=== PATIENT | female | born 1945 | race Caucasian/White ===

== ENCOUNTER 2019-06-20 13:00 | Outpatient (RCR) | payer MEDICARE, SELFPAY ==
[2019-06-06 14:48] VITALS: BP 144/73; PULSE 61; RESP 16; TEMP 35.7; BMI 19.1
--- NOTE | 2019-06-06 16:19 | PCM.WC.HP ---
(1) Wound of right leg Status: Chronic Current Visit: Yes Qualifiers: Encounter type: initial encounter Qualified Code(s): S81.801A - Unspecified open wound, right lower leg, initial encounter Code(s): S81.801A - Unspecified open wound, right lower leg, initial encounter (2) Wound infection, posttraumatic Status: Chronic Current Visit: Yes Code(s): T14.8XXA - Other injury of unspecified body region, initial encounter; L08.9 - Local infection of the skin and subcutaneous tissue, unspecified (3) Hyperlipidemia Status: Chronic Current Visit: No Code(s): E78.5 - Hyperlipidemia, unspecified (4) Hypothyroidism Status: Chronic Current Visit: No Code(s): E03.9 - Hypothyroidism, unspecified (5) History of melanoma Status: Chronic Current Visit: No Code(s): Z85.820 - Personal history of malignant melanoma of skin (6) History of melanoma excision Status: Chronic Current Visit: No Code(s): Z98.890 - Other specified postprocedural states; Z85.820 - Personal history of malignant melanoma of skin History of Present Illness Date of Service: 06/06/19 Chief Complaint: Traumatic wound of the right anterior tibial surface, with suspected infection History of Wound: This is a generally healthy and active 73-year-old female who presents with a traumatic wound on the right anterior tibial surface. The injury occurred on May 10, 2019. It occurred due to trauma when the patient dropped a box against her leg. An open wound resulted, for which she sought medical attention on May 18, 2019 at an urgent care facility. 2 oral antibiotics were prescribed, both Keflex and Bactrim double strength, which she took for a total of 10 days. She has remained under the care of her primary care physician in [place], [place], and has been using antibiotic ointment topically for the last week. Despite all measures, the wound has failed to heal. She presents at this time for evaluation and management. The patient claims to be active. She has no history of thrombophlebitis. She does not generally experience swelling in her lower extremities. Past Medical History Past Medical History: Chronic Problems Wound of right leg (Chronic) Wound infection, posttraumatic (Chronic) Hyperlipidemia (Chronic) Hypothyroidism (Chronic) History of melanoma (Chronic) History of melanoma excision (Chronic) Past Medical History: Patient's history is negative for myocardial infarction, congestive heart failure, cerebrovascular accident, diabetes mellitus, hypertension, pulmonary disease, renal disease, and gastroesophageal reflux disease. She does have a history of hypothyroidism and diet-controlled hyperlipidemia. Surgical History: - - The patient underwent right total hip replacement in 2017. She underwent right rotator cuff surgery in 2017. Hysterectomy was performed in 1986. Patient underwent excision of a melanoma from her right thorax in the past. She is a G4, P3 Ab1 (spontaneous). Home Medications: Ambulatory Orders Medication Instructions Recorded Aspirin [Aspir 81] 81 mg PO DAILY 06/06/19 Bimatoprost 0.01% [Lumigan 0.01%] 1 drp EACH EYE DAILY 06/06/19 Calcium Carbonate/Vitamin D3 1 ea PO BID 06/06/19 [Calcium 600 + Vit D Tablet] Fish Oil/Dha/Epa [Fish Oil 1,200 1 ea PO DAILY 06/06/19 mg Fish Oil] Levothyroxine [Synthroid] 100 mcg PO DAILY 06/06/19 Multivitamin/Iron/Folic Acid 1 ea PO DAILY 06/06/19 [Centrum Adults Tablet] - Family History Paternal - - The patient's father at the age of 65 with a history of myocardial infarction. The patient's mother is living, age 95, with severe peripheral arterial occlusive disease which has required lower extremity amputation. Social History: The patient is . 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 She denies the use of tobacco products. She consumes alcohol moderately. Lives: Spouse/ Significant Other Smoking Status: Former smoker Tobacco Use: Non-smoker Alcohol: Occasional Drugs: None Review of Systems Constitutional: Denies: Chills, Fever, Weight Change Eyes: Denies: Pain, Vision Change HEENT: Denies: Difficulty Hearing, Difficulty Swallowing, Sinus Congestion Cardiovascular: Denies: Chest Pain, Palpitations Respiratory: Denies: Cough, Shortness of Breath Gastrointestinal: Denies: Diarrhea, Nausea, Vomiting Genitourinary: Denies: Dysuria, Hematuria Endocrine: Denies: Heat/ Cold Intolerance, Polydipsia, Polyuria Hematologic/ Lymphatic: Denies: Easy Bruising, Easy Bleeding - Physical Exam Vital Signs Temp Pulse Resp BP 96.2 F L 61 16 144/73 H 06/06/19 14:48 06/06/19 14:48 06/06/19 14:48 06/06/19 14:48 General: Alert, Oriented x3, Cooperative, No apparent distress, Well developed, Well nourished, - - The patient is of relatively normal body habitus. HEENT: Atraumatic, PERRLA, EOMI, Normocephalic Oral: Moist Mucosa, No Gingival or Mucosal Lesions/ Ulcerations Neck: Supple, No JVD, Negative Carotid Bruits, Negative Hepatojugular Reflux, No Nodes, No Nuchal Rigidity, Trachea Midline Lungs: Clear to auscultation, Normal air movement, No rhonchi, No wheeze, No rales Cardiovascular: Regular rate, Regular Rhythm, Normal S1, Normal S2, No murmurs Abdomen: Soft, Non Tender, Non-Distended Extremities: No clubbing, No cyanosis, No edema, No Calf Tenderness, - - An open wound is noted on the right anterior tibial surface. The wound is covered by a dry eschar. There is moderate surrounding erythema, suspected to be cellulitis. Dimensions are documented elsewhere. Wound Measurements and Assessment WC - Nurse 1 - General Ulcer Measurement Start: 06/06/19 14:48 Freq: Status: Active Protocol: Activity Type Activity Date Activity User E-Sign Co-Sign Detail Recorded Client Recorded Date Recorded By Document 06/06/19 14:48 MW [id number] 06/06/19 14:55 MW 06/06/19 14:48 Wound Center Nurse 1 [Ulcer Assessment] #1 Right Presley -Combined with other wound No -Current Size (cm) - Length 1.3 -Current Size (cm) - Width 0.7 -Current Size (cm) - Depth 0.1 -Total Square Cm 0.91 -Date of Last Picture (Recall this 06/06/19 field) -Photo Taken Yes -Epithelialization None Present -Tunneling No -Undermining/Tunneling No -Circular Undermining No -Exudate Amt None Present -Wound Margin Flat & Intact -Granulation Amt None Present (0 %) -Granulation Quality N/A -Slough/Fibrin Yes -Necrosis Amt Large (67-100%) -Necrotic Tissue Type Eschar -Structure Exposed N/A -Texture (Sharon-wound Skin Appearance) No Abnormality, Assessed -Moisture (Sharon-wound Skin Appearance Assessed,Dry/ ) Scaly -Color (Sharon-wound Skin Appearance) Assessed, Erythema -Temperature (Sharon-wound Skin No Abnormality Appearance) (Pt Warm) -Tenderness on Palpation (Sharon-wound Yes Skin Appearance) -Ulcer Cleansing Rinsed/ Irrigated with Saline -Anesthetic Used 5% Lidocaine Gel [Edema Assessment] -Lower Limb Edema Present No -Right Calf (cm) 34.0 -Right Ankle (cm) 19.0 -Left Calf (cm) 35.0 -Left Ankle (cm) 18.7 WC - Nurse 2 - General Ulcer CM Notes Start: 06/06/19 14:48 Freq: Status: Active Protocol: Activity Type Activity Date Activity User E-Sign Co-Sign Detail Recorded Client Recorded Date Recorded By Document 06/06/19 15:44 DV [id number] 06/06/19 15:59 DV 06/06/19 15:44 Wound Center Nurse 2 [Procedure/Treatment] #1 Right Presley -Time 15:48 -Correct Patient Yes -Correct Side, Site, Position Yes -Correct Procedure Yes -Procedure Performed Yes -Type of Procedure Debridement -Clinical Debridement Subcutaneous -Post Debridement Size (cm) - Length 1.2 -Post Debridement Size (cm) - Width 0.8 -Post Debridement Size (cm) - Depth 0.3 -Total Square Cm 0.96 -Wound/Ulcer Outcome Not Healed -Ulcer Cleansing Rinsed/ Irrigated with Saline -Foul Odor after Cleansing No -Bioengineered Tissue No -Bleeding Controlled with Pressure -Offloading No -Treatment Response Procedure Tolerated Well [See Physician Procedure note for Specifics] Pain Scale: 0-10 Numeric [Pain] -Is Patient Pain Free? Yes Musculoskeletal: No Muscle Wasting Neurological: Cranial nerves II-XII grossly intact, Neuro grossly intact Psych/Mental Status: Normal Affect, Appropriate, Alert and oriented to time, place, person, mood and affect Debridement Note Post-Debridement Measurements/Treatment - Nurse 2 - General Ulcer CM Notes Start: 06/06/19 14:48 Freq: Status: Active Protocol: Activity Type Activity Date Activity User E-Sign Co-Sign Detail Recorded Client Recorded Date Recorded By Document 06/06/19 15:44 DV [id number] 06/06/19 15:59 DV 06/06/19 15:44 Wound Center Nurse 2 #1 Right Presley -Time 15:48 -Correct Patient Yes -Correct Side, Site, Position Yes -Correct Procedure Yes -Procedure Performed Yes -Type of Procedure Debridement -Clinical Debridement Subcutaneous -Post Debridement Size (cm) - Length 1.2 -Post Debridement Size (cm) - Width 0.8 -Post Debridement Size (cm) - Depth 0.3 -Total Square Cm 0.96 -Wound/Ulcer Outcome Not Healed -Ulcer Cleansing Rinsed/ Irrigated with Saline -Foul Odor after Cleansing No -Bioengineered Tissue No -Bleeding Controlled with Pressure -Offloading No -Treatment Response Procedure Tolerated Well Pain Scale: 0-10 Numeric Is Patient Pain Free? Yes Laterality: Right - Anterior tibial surface Type of Debridement: Excisional debridement Anesthesia Used: 5% Lidocaine Gel Depth: Down to and including healthy tissue, in the subcutaneous layer Percentage of wound debrided: 100 Instrument Used: 5mm curette Tissue Removed: Bioburden, nonviable tissue, and eschar Severity: Fat Layer Exposed Amount of bleeding with debridement: Mild Bleeding Controlled with: Compression and gauze Patient tolerated procedure well Following removal of the eschar, swab cultures were obtained for both aerobic and anaerobic bacterial growth. Assessment/Plan Active Problems Wound of right leg (Chronic) Wound infection, posttraumatic (Chronic) Assessment: This is a 73-year-old female who appears to be generally healthy, active, and functional. She presents with a traumatic wound on the right anterior tibial surface, the result of trauma on May 10, 2019. The wound has failed to heal. At her initial presentation today, there is surrounding erythema, suggesting the presence of cellulitis. Her wound has been debrided. Swab cultures have been obtained for both aerobic and anaerobic growth. Plan: Initial management is to be by means of collagenase Santyl which will be applied topically by the patient on a daily basis. Patient has been instructed into the appropriate means of topical application. A prescription has been provided. The patient's pharmacy is [facility] in [place], [place]. Swab cultures have been obtained for aerobic and anaerobic bacterial growth. Culture results will be awaited. Routine laboratory studies are to be obtained, including a CBC, comprehensive metabolic profile, serum prealbumin, etc. A noninvasive lower extremity arterial study will also be obtained to assess arterial circulation. The patient has been counseled to take a well-balanced and nutritious diet. The patient is not a smoker. Influenza vaccine was not administered today. The patient weighs 115 pounds. She stands 5 feet 5 inches tall. Her BMI is 19.1. She is not overweight or obese.
[2019-06-13 14:22] VITALS: BP 144/90; PULSE 68; RESP 18; BMI 19.1
--- NOTE | 2019-06-13 15:29 | HP.PCM_ITS ---
(1) Wound of right leg Status: Chronic Current Visit: Yes Qualifiers: Encounter type: subsequent encounter Qualified Code(s): S81.801D - Unspecified open wound, right lower leg, subsequent encounter Code(s): S81.801A - Unspecified open wound, right lower leg, initial encounter (2) Wound infection, posttraumatic Status: Chronic Current Visit: Yes Code(s): T14.8XXA - Other injury of unspecified body region, initial encounter; L08.9 - Local infection of the skin and subcutaneous tissue, unspecified (3) Hyperlipidemia Status: Chronic Current Visit: No Code(s): E78.5 - Hyperlipidemia, unspecified (4) Hypothyroidism Status: Chronic Current Visit: No Code(s): E03.9 - Hypothyroidism, unspecified (5) History of melanoma Status: Chronic Current Visit: No Code(s): Z85.820 - Personal history of malignant melanoma of skin (6) History of melanoma excision Status: Chronic Current Visit: No Code(s): Z98.890 - Other specified postprocedural states; Z85.820 - Personal history of malignant melanoma of skin History of Present Illness Date of Service: 06/13/19 Chief Complaint: Traumatic wound of the right anterior tibial surface History of Wound: This is a generally healthy and active 73-year-old female who presented with a traumatic wound on the right anterior tibial surface. The injury occurred on May 10, 2019. It occurred due to trauma when the patient dropped a box against her leg. An open wound resulted, for which she sought medical attention on May 18, 2019 at an urgent care facility. Two oral antibiotics were prescribed, both Keflex and Bactrim double strength, which she took for a total of 10 days. She has remained under the care of her primary care physician in [place], [place], and has been using antibiotic ointment topically for the last week. Despite all measures, the wound has failed to heal. She presented to our facility for evaluation and management. The patient claims to be active. She has no history of thrombophlebitis. She does not generally experience swelling in her lower extremities. Past Medical History Past Medical History: Chronic Problems Wound of right leg (Chronic) Wound infection, posttraumatic (Chronic) Hyperlipidemia (Chronic) Hypothyroidism (Chronic) History of melanoma (Chronic) History of melanoma excision (Chronic) Surgical History: - - The patient underwent right total hip replacement in 2017. She underwent right rotator cuff surgery in 2017. Hysterectomy was performed in 1986. Patient underwent excision of a melanoma from her right thorax in the past. She is a G4, P3 Ab1 (spontaneous). Home Medications: Ambulatory Orders Medication Instructions Recorded Aspirin [Aspir 81] 81 mg PO DAILY 06/06/19 Bimatoprost 0.01% [Lumigan 0.01%] 1 drp EACH EYE DAILY 06/06/19 Calcium Carbonate/Vitamin D3 1 ea PO BID 06/06/19 [Calcium 600 + Vit D Tablet] Fish Oil/Dha/Epa [Fish Oil 1,200 1 ea PO DAILY 06/06/19 mg Fish Oil] Levothyroxine [Synthroid] 100 mcg PO DAILY 06/06/19 Multivitamin/Iron/Folic Acid 1 ea PO DAILY 06/06/19 [Centrum Adults Tablet] - Family History Paternal - - The patient's father at the age of 65 with a history of myocardial infarction. The patient's mother is living, age 95, with severe peripheral arterial occlusive disease which has required lower extremity amputation. Lives: Spouse/ Significant Other Smoking Status: Former smoker Tobacco Use: Non-smoker Alcohol: Occasional Drugs: None Review of Systems Constitutional: Denies: Chills, Fever, Weight Change Eyes: Denies: Pain, Vision Change HEENT: Denies: Difficulty Hearing, Difficulty Swallowing, Sinus Congestion Cardiovascular: Denies: Chest Pain, Palpitations Respiratory: Denies: Cough, Shortness of Breath Gastrointestinal: Denies: Diarrhea, Nausea, Vomiting Genitourinary: Denies: Dysuria, Hematuria Endocrine: Denies: Heat/ Cold Intolerance, Polydipsia, Polyuria Hematologic/ Lymphatic: Denies: Easy Bruising, Easy Bleeding - Physical Exam Vital Signs Temp Pulse Resp BP 96.2 F L 68 18 144/90 H 06/06/19 14:48 06/13/19 14:22 06/13/19 14:22 06/13/19 14:22 General: Alert, Oriented x3, Cooperative, No apparent distress, Well developed, Well nourished HEENT: Atraumatic, PERRLA, EOMI, Normocephalic Oral: Moist Mucosa Neck: No JVD Lungs: Normal air movement Abdomen: Non-Distended Extremities: No clubbing, No cyanosis, No edema, No Calf Tenderness, - - The wound of the right anterior tibial surface demonstrates a moderate amount of bioburden and nonviable tissue. There is no obvious sign of infection or cellulitis. Dimensions are documented elsewhere. Skin: No rashes Wound Measurements and Assessment - Nurse 1 - General Ulcer Measurement Start: 06/06/19 14:48 Freq: Status: Active Protocol: Activity Type Activity Date Activity User E-Sign Co-Sign Detail Recorded Client Recorded Date Recorded By Document 06/13/19 14:22 [id number] 06/13/19 14:28 06/13/19 14:22 Wound Center Nurse 1 [Ulcer Assessment] #1 Right Presley -Combined with other wound No -Current Size (cm) - Length 1.0 -Current Size (cm) - Width 1.0 -Current Size (cm) - Depth 0.1 -Total Square Cm 1.00 -Granulation Quality Hyper- granulation -Texture (Sharon-wound Skin Appearance) Assessed, Localized Edema ,Scarring -Moisture (Sharon-wound Skin Appearance Assessed,Dry/ ) Scaly -Color (Sharon-wound Skin Appearance) Assessed, Hemosiderin Staining -Temperature (Sharon-wound Skin No Abnormality Appearance) (Pt Warm) -Tenderness on Palpation (Sharon-wound No Skin Appearance) -Ulcer Cleansing Rinsed/ Irrigated with Saline -Foul Odor after Cleansing No -Anesthetic Used 4% Lidocaine Solution - Nurse 2 - General Ulcer CM Notes Start: 06/06/19 14:48 Freq: Status: Active Protocol: Activity Type Activity Date Activity User E-Sign Co-Sign Detail Recorded Client Recorded Date Recorded By Document 06/13/19 15:19 DV [id number] 06/13/19 15:25 DV 06/13/19 15:19 Wound Center Nurse 2 [Procedure/Treatment] -Time 15:19 -Correct Patient Yes -Correct Side, Site, Position Yes -Correct Procedure Yes -Procedure Performed Yes -Type of Procedure Debridement -Clinical Debridement Subcutaneous -Post Debridement Size (cm) - Length 1.5 -Post Debridement Size (cm) - Width 1.0 -Post Debridement Size (cm) - Depth 1.0 -Total Square Cm 1.50 -Wound/Ulcer Outcome Not Healed -Ulcer Cleansing Rinsed/ Irrigated with Saline -Foul Odor after Cleansing No -Bioengineered Tissue No -Bleeding Controlled with Pressure -Offloading No -Treatment Response Procedure Tolerated Well [See Physician Procedure note for Specifics] Pain Scale: 0-10 Numeric [Pain] -Is Patient Pain Free? Yes Musculoskeletal: No Muscle Wasting Neurological: Cranial nerves II-XII grossly intact, Neuro grossly intact Psych/Mental Status: Normal Affect, Appropriate, Alert and oriented to time, place, person, mood and affect Debridement Note Post-Debridement Measurements/Treatment WC - Nurse 2 - General Ulcer CM Notes Start: 06/06/19 14:48 Freq: Status: Active Protocol: Activity Type Activity Date Activity User E-Sign Co-Sign Detail Recorded Client Recorded Date Recorded By Document 06/06/19 15:44 DV [id number] 06/06/19 15:59 DV Document 06/13/19 15:19 DV [id number] 06/13/19 15:25 DV 06/06/19 06/13/19 15:44 15:19 Wound Center Nurse 2 #1 Right Presley -Time 15:48 15:19 -Correct Patient Yes Yes -Correct Side, Site, Position Yes Yes -Correct Procedure Yes Yes -Procedure Performed Yes Yes -Type of Procedure Debridement Debridement -Clinical Debridement Subcutaneous Subcutaneous -Post Debridement Size (cm) - Length 1.2 1.5 -Post Debridement Size (cm) - Width 0.8 1.0 -Post Debridement Size (cm) - Depth 0.3 1.0 -Total Square Cm 0.96 1.50 -Wound/Ulcer Outcome Not Healed Not Healed -Ulcer Cleansing Rinsed/ Rinsed/ Irrigated with Irrigated with Saline Saline -Foul Odor after Cleansing No No -Bioengineered Tissue No No -Bleeding Controlled with Pressure Pressure -Offloading No No -Treatment Response Procedure Procedure Tolerated Well Tolerated Well Pain Scale: 0-10 Numeric Is Patient Pain Free? Yes Yes Laterality: Right - Anterior tibial surface Type of Debridement: Excisional debridement Anesthesia Used: 5% Lidocaine Gel Depth: Down to and including healthy tissue, in the subcutaneous layer Percentage of wound debrided: 100 Instrument Used: 5mm curette Tissue Removed: Bioburden and nonviable tissue Severity: Fat Layer Exposed Amount of bleeding with debridement: Mild Bleeding Controlled with: Compression and gauze Patient tolerated procedure well Assessment/Plan Active Problems Wound of right leg (Chronic) Wound infection, posttraumatic (Chronic) Assessment: This is a 73-year-old female who appears to be generally healthy, active, and functional. She presented with a traumatic wound on the right anterior tibial surface, the result of trauma on May 10, 2019. The wound has failed to heal. At her initial presentation, there was mild erythema, suggesting possible cellulitis. Swab cultures were obtained for both aerobic and anaerobic growth, which were negative. The patient is also undergone diagnostic laboratory studies, the results of which are as follows: White blood count 5.5, hemoglobin 12.8, hematocrit 38.8, platelets 258,000, glucose 132, sodium 140, potassium 3.6, chloride 105, BUN 13, creatinine 0.83, calcium 8.9, albumin 4.1, alkaline phosphatase 67, total protein 6.3, AST 20, ALT 19, total bilirubin 0.5, sedimentation rate 11. A noninvasive lower extremity arterial study is scheduled for June 28, 2019, the soonest appointment which was available. Plan: Collagenase Santyl is to be implemented, which will be applied topically by the patient on a daily basis. Patient has been instructed into the appropriate means of topical application. A prescription has been provided. The patient's pharmacy is [facility] in [place], [place]. Swab cultures have been obtained for aerobic and anaerobic bacterial growth. Culture results were negative. Routine laboratory studies have been obtained, and the results indicate her total protein to be low, for which the patient has been advised to increase her protein intake. A noninvasive lower extremity arterial study is currently scheduled for June 28, 2019. This will assess arterial circulation. The patient has been counseled to take a well-balanced and nutritious diet. Patient is to follow-up on an outpatient basis in 1 week for reassessment. The patient is not a smoker. Influenza vaccine was not administered today. The patient weighs 115 pounds. She stands 5 feet 5 inches tall. Her BMI is 19.1. She is not overweight or obese.
[2019-06-20 13:07] VITALS: BP 132/79; PULSE 67; RESP 18; BMI 19.1
--- NOTE | 2019-06-20 13:29 | HP.PCM_ITS ---
(1) Wound of right leg Status: Chronic Current Visit: Yes Qualifiers: Encounter type: subsequent encounter Qualified Code(s): S81.801D - Unspecified open wound, right lower leg, subsequent encounter Code(s): S81.801A - Unspecified open wound, right lower leg, initial encounter (2) Wound infection, posttraumatic Status: Chronic Current Visit: Yes Code(s): T14.8XXA - Other injury of unspecified body region, initial encounter; L08.9 - Local infection of the skin and subcutaneous tissue, unspecified (3) Hyperlipidemia Status: Chronic Current Visit: No Code(s): E78.5 - Hyperlipidemia, unspecified (4) Hypothyroidism Status: Chronic Current Visit: No Code(s): E03.9 - Hypothyroidism, unspecified (5) History of melanoma Status: Chronic Current Visit: No Code(s): Z85.820 - Personal history of malignant melanoma of skin (6) History of melanoma excision Status: Chronic Current Visit: No Code(s): Z98.890 - Other specified postprocedural states; Z85.820 - Personal history of malignant melanoma of skin History of Present Illness Date of Service: 06/20/19 Chief Complaint: Traumatic wound of the right anterior tibial surface History of Wound: This is a generally healthy and active 73-year-old female who presented with a traumatic wound on the right anterior tibial surface. The injury occurred on May 10, 2019. It occurred due to trauma when the patient dropped a box against her leg. An open wound resulted, for which she sought medical attention on May 18, 2019 at an urgent care facility. Two oral antibiotics were prescribed, both Keflex and Bactrim double strength, which she took for a total of 10 days. She has remained under the care of her primary care physician in [place], [place], and has been using antibiotic ointment topically for the last week. Despite all measures, the wound has failed to heal. She presented to our facility for evaluation and management. The patient claims to be active. She has no history of thrombophlebitis. She does not generally experience swelling in her lower extremities. Past Medical History Past Medical History: Chronic Problems Wound of right leg (Chronic) Wound infection, posttraumatic (Chronic) Hyperlipidemia (Chronic) Hypothyroidism (Chronic) History of melanoma (Chronic) History of melanoma excision (Chronic) Surgical History: - - The patient underwent right total hip replacement in 2017. She underwent right rotator cuff surgery in 2017. Hysterectomy was performed in 1986. Patient underwent excision of a melanoma from her right thorax in the past. She is a G4, P3 Ab1 (spontaneous). Home Medications: Ambulatory Orders Medication Instructions Recorded Aspirin [Aspir 81] 81 mg PO DAILY 06/06/19 Bimatoprost 0.01% [Lumigan 0.01%] 1 drp EACH EYE DAILY 06/06/19 Calcium Carbonate/Vitamin D3 1 ea PO BID 06/06/19 [Calcium 600 + Vit D Tablet] Fish Oil/Dha/Epa [Fish Oil 1,200 1 ea PO DAILY 06/06/19 mg Fish Oil] Levothyroxine [Synthroid] 100 mcg PO DAILY 06/06/19 Multivitamin/Iron/Folic Acid 1 ea PO DAILY 06/06/19 [Centrum Adults Tablet] - Family History Paternal - - The patient's father at the age of 65 with a history of myocardial infarction. The patient's mother is living, age 95, with severe peripheral arterial occlusive disease which has required lower extremity amputation. Lives: Spouse/ Significant Other Smoking Status: Former smoker Tobacco Use: Non-smoker Alcohol: Occasional Drugs: None Review of Systems Constitutional: Denies: Chills, Fever, Weight Change Eyes: Denies: Pain, Vision Change HEENT: Denies: Difficulty Hearing, Difficulty Swallowing, Sinus Congestion Cardiovascular: Denies: Chest Pain, Palpitations Respiratory: Denies: Cough, Shortness of Breath Gastrointestinal: Denies: Diarrhea, Nausea, Vomiting Genitourinary: Denies: Dysuria, Hematuria Endocrine: Denies: Heat/ Cold Intolerance, Polydipsia, Polyuria Hematologic/ Lymphatic: Denies: Easy Bruising, Easy Bleeding - Physical Exam Vital Signs Temp Pulse Resp BP 96.2 F L 67 18 132/79 H 06/06/19 14:48 06/20/19 13:07 06/20/19 13:07 06/20/19 13:07 General: Alert, Oriented x3, Cooperative, No apparent distress, Well developed, Well nourished HEENT: Atraumatic, PERRLA, EOMI, Normocephalic Oral: Moist Mucosa Neck: No JVD Lungs: Normal air movement Abdomen: Non-Distended Extremities: No clubbing, No cyanosis, No edema, No Calf Tenderness, - - Initial inspection of the patient's traumatic wound on the right anterior tibial surface reveals the periphery to be pink and healthy in appearance. Centrally, there is evidence of nonviable and necrotic tissue. During the course of gentle excisional debridement, it became evident that there was a central opening in the wound, leading to a deeper cavity, with significant undermining. Wound dimensions are documented elsewhere. There is no sign of infection or cellulitis. Skin: No rashes Wound Measurements and Assessment WC - Nurse 1 - General Ulcer Measurement Start: 06/06/19 14:48 Freq: Status: Active Protocol: Activity Type Activity Date Activity User E-Sign Co-Sign Detail Recorded Client Recorded Date Recorded By Document 06/20/19 13:07 BS [id number] 06/20/19 13:08 BS 06/20/19 13:07 Wound Center Nurse 1 [Ulcer Assessment] #1 Right Presley -Combined with other wound No -Current Size (cm) - Length 1.3 -Current Size (cm) - Width 1.8 -Current Size (cm) - Depth 0.2 -Total Square Cm 2.34 -Necrotic Tissue Type Adherent Slough -Moisture (Sharon-wound Skin Appearance No Abnormality, ) Assessed -Color (Sharon-wound Skin Appearance) Assessed, Hemosiderin Staining -Temperature (Sharon-wound Skin No Abnormality Appearance) (Pt Warm) -Tenderness on Palpation (Sharon-wound No Skin Appearance) -Ulcer Cleansing Rinsed/ Irrigated with Saline -Foul Odor after Cleansing No -Anesthetic Used 5% Lidocaine Gel WC - Nurse 2 - General Ulcer CM Notes Start: 06/06/19 14:48 Freq: Status: Active Protocol: Activity Type Activity Date Activity User E-Sign Co-Sign Detail Recorded Client Recorded Date Recorded By Document 06/20/19 13:19 MW [id number] 06/20/19 13:23 MW 06/20/19 13:19 Wound Center Nurse 2 [Procedure/Treatment] -Time 13:19 -Correct Patient Yes -Correct Side, Site, Position Yes -Correct Procedure Yes -Procedure Performed Yes -Type of Procedure Debridement -Clinical Debridement Subcutaneous -Post Debridement Size (cm) - Length 1.2 -Post Debridement Size (cm) - Width 1.0 -Post Debridement Size (cm) - Depth 0.3 -Total Square Cm 1.20 -Wound/Ulcer Outcome Not Healed -Ulcer Cleansing Rinsed/ Irrigated with Saline -Foul Odor after Cleansing No -Bioengineered Tissue No -Bleeding Controlled with Pressure -Other circular undermining - @ 9, 0.5cm -Offloading No -Treatment Response Procedure Tolerated Well [See Physician Procedure note for Specifics] Pain Scale: 0-10 Numeric [Pain] -Is Patient Pain Free? Yes Musculoskeletal: No Muscle Wasting Neurological: Cranial nerves II-XII grossly intact, Neuro grossly intact Psych/Mental Status: Normal Affect, Appropriate, Alert and oriented to time, place, person, mood and affect Debridement Note Post-Debridement Measurements/Treatment WC - Nurse 2 - General Ulcer CM Notes Start: 06/06/19 14:48 Freq: Status: Active Protocol: Activity Type Activity Date Activity User E-Sign Co-Sign Detail Recorded Client Recorded Date Recorded By Document 06/06/19 15:44 DV [id number] 06/06/19 15:59 DV Document 06/13/19 15:19 DV [id number] 06/13/19 15:25 DV Document 06/20/19 13:19 MW [id number] 06/20/19 13:23 MW 06/06/19 06/13/19 06/20/19 15:44 15:19 13:19 Wound Center Nurse 2 #1 Right Presley -Time 15:48 15:19 13:19 -Correct Patient Yes Yes Yes -Correct Side, Site, Position Yes Yes Yes -Correct Procedure Yes Yes Yes -Procedure Performed Yes Yes Yes -Type of Procedure Debridement Debridement Debridement -Clinical Debridement Subcutaneous Subcutaneous Subcutaneous -Post Debridement Size (cm) - Length 1.2 1.5 1.2 -Post Debridement Size (cm) - Width 0.8 1.0 1.0 -Post Debridement Size (cm) - Depth 0.3 1.0 0.3 -Total Square Cm 0.96 1.50 1.20 -Wound/Ulcer Outcome Not Healed Not Healed Not Healed -Ulcer Cleansing Rinsed/ Rinsed/ Rinsed/ Irrigated with Irrigated with Irrigated with Saline Saline Saline -Foul Odor after Cleansing No No No -Bioengineered Tissue No No No -Bleeding Controlled with Pressure Pressure Pressure -Other circular undermining - @ 9, 0.5cm -Offloading No No No -Treatment Response Procedure Procedure Procedure Tolerated Well Tolerated Well Tolerated Well Pain Scale: 0-10 Numeric Is Patient Pain Free? Yes Yes Yes Laterality: Right - Anterior tibial surface Type of Debridement: Excisional debridement Anesthesia Used: 5% Lidocaine Gel Depth: Down to and including healthy tissue, in the subcutaneous layer Percentage of wound debrided: 100 Instrument Used: 3mm curette Tissue Removed: Bioburden and nonviable tissue Severity: Fat Layer Exposed Amount of bleeding with debridement: Mild Bleeding Controlled with: Compression and gauze Patient tolerated procedure well Assessment/Plan Active Problems Wound of right leg (Chronic) Wound infection, posttraumatic (Chronic) Assessment: This is a 73-year-old female who appears to be generally healthy, active, and functional. She presented with a traumatic wound on the right anterior tibial surface, the result of trauma on May 10, 2019. The wound has failed to heal. At her initial presentation, there was mild erythema, suggesting possible cellulitis. Swab cultures were obtained for both aerobic and anaerobic growth, which were negative. The patient has also undergone diagnostic laboratory studies, the results of which are as follows: White blood count 5.5, hemoglobin 12.8, hematocrit 38.8, platelets 258,000, glucose 132, sodium 140, potassium 3.6, chloride 105, BUN 13, creatinine 0.83, calcium 8.9, albumin 4.1, alkaline phosphatase 67, total protein 6.3, AST 20, ALT 19, total bilirubin 0.5, sedimentation rate 11. A noninvasive lower extremity arterial study is scheduled for June 28, 2019, the soonest appointment which was available. Plan: Because of the undermining and central necrosis of the patient's traumatic wound, both of which have been noted at today's visit for the first time, we are to transition to the use of 1/4 inch Nu Gauze, which will be used to pack the wound cavity. This will be implemented on a daily basis. The patient has been instructed in the appropriate means of packing her wound. She is to follow-up in 1 week for reassessment. Swab cultures have been obtained for aerobic and anaerobic bacterial growth. Culture results were negative. Routine laboratory studies have been obtained, and the results indicate her total protein to be low, for which the patient has been advised to increase her protein intake. A noninvasive lower extremity arterial study is currently scheduled for June 28, 2019. This will assess arterial circulation. The patient has been counseled to take a well-balanced and nutritious diet. Patient is to follow-up on an outpatient basis in 1 week for reassessment. The patient is not a smoker. Influenza vaccine was not administered today. The patient weighs 115 pounds. She stands 5 feet 5 inches tall. Her BMI is 19.1. She is not overweight or obese.
== END 2019-06-21 23:59 ==
LOC: WC 13:00
PROVIDERS: Family Provider Nurse Practitioner Family; PCP Nurse Practitioner Family; Visit Provider Surgery
DX: S81.831A Puncture wound without foreign body, right lower leg, initial encounter (principal); W22.8XXA Striking against or struck by other objects, initial encounter; Z85.820 Personal history of malignant melanoma of skin; E03.9 Hypothyroidism, unspecified; E78.5 Hyperlipidemia, unspecified; Z79.899 Other long term (current) drug therapy; Z79.82 Long term (current) use of aspirin; Z87.891 Personal history of nicotine dependence
CPT/HCPCS: 11042; 87070; 87075; 87205; 99203; G0463

== ENCOUNTER 2019-07-19 12:00 | Outpatient (RCR) | payer MEDICARE, SELFPAY ==
[2019-06-22 01:06] VITALS: BP 132/79; PULSE 67; RESP 18; TEMP 35.7
--- NOTE | 2019-06-28 10:00 | VDLE_ITS ---
Reason For Study: pain and swelling, alexander ulcer RIGHT LEFT CFV is compressible, spontaneous, phasic, CFV is compressible, spontaneous, phasic, competent and demonstrates normal competent, and demonstrates normal augmentation. augmentation. FV is compressible, spontaneous, phasic, FV is compressible, spontaneous, phasic, competent and demonstrates normal competent and demonstrates normal augmentation. augmentation. POP V is compressible, spontaneous, phasic, POP V is compressible, spontaneous, phasic, competent and demonstrates normal competent and demonstrates normal augmentation. augmentation. T/P Trunk is compressible. T/P Trunk is compressible. PTV is compressible. PTV is compressible. RT PerV is compressible. LT PerV is compressible. SFJ is competent and measures .32 x .34 cm. SFJ is competent and measures .4 x .42 cm. GSV proximal thigh measures .23 x .24 cm. GSV proximal thigh measures .31 x .36 cm. GSV at knee measures .14 x .15 cm. GSV at knee measures .18 x .22 cm. GSV is competent throughout. GSV above knee is competent. SSV proximal calf is INCOMPETENT for greater GSV below knee is INCOMPETENT for greater than 0.5 seconds and measures .26 x .28 cm. than 0.5 seconds. Procedure SSV proximal calf is competent and Exam performed in department. measures .11 x .14 cm. The exam was diagnostic. Interpretation Summary Deep veins of the lower extremities are bilaterally patent and compressible segmentally. There is no evidence of deep vein thrombosis on either side. Valvular competence appears intact within the proximal deep venous systems bilaterally. The great saphenous veins appear bilaterally patent and compressible segmentally. Sapheno-femoral junctions are bilaterally competent . The right great saphenous vein appears segmentally competent. The left great saphenous vein appears competent above the knee. The left great saphenous vein appears incompetent below the knee. The right small saphenous vein is patent and incompetent. The left small saphenous vein is patent and competent. Ordering Physician: Edilberto Flores Performed By: Erick Wagner RVT
--- NOTE | 2019-06-28 10:00 | ART_ITS ---
Reason For Study: PVD Procedure A bilateral lower extremity continuous wave Doppler with analog waveform analysis,segmental pressures,and ankle brachial indexes without exercise. Left Segmental Pressures Left brachial= 156mmHg. Left posterior tibial artery = 170mmHg. Left dorsalis pedis artery = 159mmHg. Left digit = 121 mmHg. The left dorsalis pedis waveforms are triphasic. The left posterior tibial artery waveforms are triphasic. Right Segmental Pressures Right brachial= 155mmHg. Right posterior tibial artery = 175mmHg. Right dorsalis pedis artery = 172mmHg. Right digit = 123 mmHg. The right dorsalis pedis waveforms are triphasic. The right posterior tibial artery waveforms are triphasic. Indices The right ankle brachial index by the dorsalis pedis is 1.1. The right ankle brachial index by the posterior tibial artery is 1.12. The right digital-brachial index is .79. The left ankle brachial index by the dorsalis pedis is 1.02. The left ankle brachial index by the posterior tibial artery is 1.09. The left digital-brachial index is .78. Interpretation Summary Triphasic Doppler waveforms are noted at ankle level bilaterally. Pulse-volume recordings appear satisfactory at low-thigh, calf, and ankle levels bilaterally, and slightly diminished in amplitude at digital level bilaterally. Resting ankle-brachial indices are normal bilaterally. Digital- brachial indices are normal bilaterally. There is no evidence of significant arterial occlusive disease in the lower extremities bilaterally. Ordering Physician: Edilberto Flores Performed By: [facility]OL[facility]
[2019-06-28 11:58] VITALS: BP 127/59; PULSE 72; RESP 16; TEMP 36.2; BMI 19.1
--- NOTE | 2019-06-28 12:32 | PCM.WC.HP ---
(1) Wound of right leg Status: Chronic Current Visit: Yes Qualifiers: Encounter type: subsequent encounter Code(s): S81.801A - Unspecified open wound, right lower leg, initial encounter (2) Wound infection, posttraumatic Status: Chronic Current Visit: Yes Code(s): T14.8XXA - Other injury of unspecified body region, initial encounter; L08.9 - Local infection of the skin and subcutaneous tissue, unspecified (3) Hyperlipidemia Status: Chronic Current Visit: No Code(s): E78.5 - Hyperlipidemia, unspecified (4) Hypothyroidism Status: Chronic Current Visit: No Code(s): E03.9 - Hypothyroidism, unspecified (5) History of melanoma Status: Chronic Current Visit: No Code(s): Z85.820 - Personal history of malignant melanoma of skin (6) History of melanoma excision Status: Chronic Current Visit: No Code(s): Z98.890 - Other specified postprocedural states; Z85.820 - Personal history of malignant melanoma of skin History of Present Illness Date of Service: 06/28/19 Chief Complaint: Traumatic wound of the right anterior tibial surface History of Wound: This is a generally healthy and active 73-year-old female who presented with a traumatic wound on the right anterior tibial surface. The injury occurred on May 10, 2019. It occurred due to trauma when the patient dropped a box against her leg. An open wound resulted, for which she sought medical attention on May 18, 2019 at an urgent care facility. Two oral antibiotics were prescribed, both Keflex and Bactrim double strength, which she took for a total of 10 days. She has remained under the care of her primary care physician in [place], [place], and has been using antibiotic ointment topically for the last week. Despite all measures, the wound has failed to heal. She presented to our facility for evaluation and management. The patient claims to be active. She has no history of thrombophlebitis. She does not generally experience swelling in her lower extremities. Past Medical History Past Medical History: Chronic Problems Wound of right leg (Chronic) Wound infection, posttraumatic (Chronic) Hyperlipidemia (Chronic) Hypothyroidism (Chronic) History of melanoma (Chronic) History of melanoma excision (Chronic) Surgical History: - - The patient underwent right total hip replacement in 2017. She underwent right rotator cuff surgery in 2016. Hysterectomy was performed in 1986. Patient underwent excision of a melanoma from her right thorax in the past. She is a G4, P3 Ab1 (spontaneous). Home Medications: Ambulatory Orders Medication Instructions Recorded Aspirin [Aspir 81] 81 mg PO DAILY 06/06/19 Bimatoprost 0.01% [Lumigan 0.01%] 1 drp EACH EYE DAILY 06/06/19 Calcium Carbonate/Vitamin D3 1 ea PO BID 06/06/19 [Calcium 600 + Vit D Tablet] Fish Oil/Dha/Epa [Fish Oil 1,200 1 ea PO DAILY 06/06/19 mg Fish Oil] Levothyroxine [Synthroid] 100 mcg PO DAILY 06/06/19 Multivitamin/Iron/Folic Acid 1 ea PO DAILY 06/06/19 [Centrum Adults Tablet] - Family History Paternal - - The patient's father at the age of 65 with a history of myocardial infarction. The patient's mother is living, age 95, with severe peripheral arterial occlusive disease which has required lower extremity amputation. Smoking Status: Former smoker Tobacco Use: Non-smoker Review of Systems Constitutional: Denies: Chills, Fever, Weight Change Eyes: Denies: Pain, Vision Change HEENT: Denies: Difficulty Hearing, Difficulty Swallowing, Sinus Congestion Cardiovascular: Denies: Chest Pain, Palpitations Respiratory: Denies: Cough, Shortness of Breath Gastrointestinal: Denies: Diarrhea, Nausea, Vomiting Genitourinary: Denies: Dysuria, Hematuria Endocrine: Denies: Heat/ Cold Intolerance, Polydipsia, Polyuria Hematologic/ Lymphatic: Denies: Easy Bruising, Easy Bleeding - Physical Exam Vital Signs Temp Pulse Resp BP 97.2 F L 72 16 127/59 H 06/28/19 11:58 06/28/19 11:58 06/28/19 11:58 06/28/19 11:58 General: Alert, Oriented x3, Cooperative, No apparent distress, Well developed, Well nourished HEENT: Atraumatic, PERRLA, EOMI, Normocephalic Oral: Moist Mucosa Neck: No JVD Lungs: Normal air movement Abdomen: Non-Distended Extremities: No clubbing, No cyanosis, No edema, No Calf Tenderness, - - An open wound is noted on the left anterior tibial surface. Margins are not well beveled. There is mild undermining inferiorly. Depth is considerable as compared to width. Dimensions are documented elsewhere. There is a small amount of bioburden and nonviable tissue. There is no sign of infection or cellulitis. Skin: No rashes Wound Measurements and Assessment - Nurse 1 - General Ulcer Measurement Start: 06/28/19 11:58 Freq: Status: Active Protocol: Activity Type Activity Date Activity User E-Sign Co-Sign Detail Recorded Client Recorded Date Recorded By Document 06/28/19 11:58 [facility] [id number] 06/28/19 12:05 [facility] 06/28/19 11:58 Wound Center Nurse 1 [Ulcer Assessment] #1 Right Presley -Combined with other wound No -Current Size (cm) - Length 1 -Current Size (cm) - Width 0.6 -Current Size (cm) - Depth 0.5 -Total Square Cm 0.6 -Photo Taken No -Epithelialization None Present -Tunneling No -Undermining/Tunneling No -Exudate Amt Small -Exudate Type Serosanguineous -Wound Margin Distinct, Outline Attached -Granulation Amt Small (1-33%) -Granulation Quality Red -Slough/Fibrin Yes -Necrosis Amt Large (67-100%) -Necrotic Tissue Type Adherent Slough -Texture (Sharon-wound Skin Appearance) Assessed, Localized Edema ,Scarring -Moisture (Sharon-wound Skin Appearance Assessed ) -Color (Sharon-wound Skin Appearance) Assessed, Erythema -Temperature (Sharon-wound Skin No Abnormality Appearance) (Pt Warm) -Tenderness on Palpation (Sharon-wound No Skin Appearance) -Ulcer Cleansing Rinsed/ Irrigated with Saline -Foul Odor after Cleansing No -Anesthetic Used 5% Lidocaine Gel [facility] Nurse 2 - General Ulcer CM Notes Start: 06/28/19 11:58 Freq: Status: Active Protocol: Activity Type Activity Date Activity User E-Sign Co-Sign Detail Recorded Client Recorded Date Recorded By Document 06/28/19 12:21 [id number] 06/28/19 12:24 06/28/19 12:21 Wound Center Nurse 2 [Procedure/Treatment] -Time 12:21 -Correct Patient Yes -Correct Side, Site, Position Yes -Correct Procedure Yes -Procedure Performed Yes -Type of Procedure Debridement -Clinical Debridement Subcutaneous -Post Debridement Size (cm) - Length 1.1 -Post Debridement Size (cm) - Width 0.6 -Post Debridement Size (cm) - Depth 0.6 -Total Square Cm 0.66 -Wound/Ulcer Outcome Not Healed -Ulcer Cleansing Rinsed/ Irrigated with Saline -Foul Odor after Cleansing No -Bioengineered Tissue No -Bleeding Controlled with Pressure -Offloading No -Treatment Response Procedure Tolerated Well [See Physician Procedure note for Specifics] Pain Scale: 0-10 Numeric [Pain] -Is Patient Pain Free? Yes Musculoskeletal: No Muscle Wasting Neurological: Cranial nerves II-XII grossly intact, Neuro grossly intact Psych/Mental Status: Normal Affect, Appropriate, Alert and oriented to time, place, person, mood and affect Debridement Note Post-Debridement Measurements/Treatment WC - Nurse 2 - General Ulcer CM Notes Start: 06/28/19 11:58 Freq: Status: Active Protocol: Activity Type Activity Date Activity User E-Sign Co-Sign Detail Recorded Client Recorded Date Recorded By Document 06/28/19 12:21 HARJIT [id number] 06/28/19 12:24 HARJIT 06/28/19 12:21 Wound Center Nurse 2 #1 Right Presley -Time 12:21 -Correct Patient Yes -Correct Side, Site, Position Yes -Correct Procedure Yes -Procedure Performed Yes -Type of Procedure Debridement -Clinical Debridement Subcutaneous -Post Debridement Size (cm) - Length 1.1 -Post Debridement Size (cm) - Width 0.6 -Post Debridement Size (cm) - Depth 0.6 -Total Square Cm 0.66 -Wound/Ulcer Outcome Not Healed -Ulcer Cleansing Rinsed/ Irrigated with Saline -Foul Odor after Cleansing No -Bioengineered Tissue No -Bleeding Controlled with Pressure -Offloading No -Treatment Response Procedure Tolerated Well Pain Scale: 0-10 Numeric Is Patient Pain Free? Yes Laterality: Right - Anterior tibial surface Type of Debridement: Excisional debridement Anesthesia Used: 5% Lidocaine Gel Depth: Down to and including healthy tissue, in the subcutaneous layer Percentage of wound debrided: 100 Instrument Used: 5mm curette Tissue Removed: Bioburden and nonviable tissue Severity: Fat Layer Exposed Amount of bleeding with debridement: Mild Bleeding Controlled with: Compression and gauze Patient tolerated procedure well Assessment/Plan Active Problems Wound of right leg (Chronic) Wound infection, posttraumatic (Chronic) Assessment: This is a 73-year-old female who appears to be generally healthy, active, and functional. She presented with a traumatic wound on the right anterior tibial surface, the result of trauma on May 10, 2019. The wound has failed to heal. At her initial presentation, there was mild erythema, suggesting possible cellulitis. Swab cultures were obtained for both aerobic and anaerobic growth, which were negative. The patient has also undergone diagnostic laboratory studies, the results of which are as follows: White blood count 5.5, hemoglobin 12.8, hematocrit 38.8, platelets 258,000, glucose 132, sodium 140, potassium 3.6, chloride 105, BUN 13, creatinine 0.83, calcium 8.9, albumin 4.1, alkaline phosphatase 67, total protein 6.3, AST 20, ALT 19, total bilirubin 0.5, sedimentation rate 11. A noninvasive lower extremity arterial study has been performed, which reveals no evidence of significant arterial occlusive disease in the lower extremities. Resting ankle-brachial indices are bilaterally normal. Triphasic Doppler waveforms are noted bilaterally at ankle level. A venous duplex examination reveals the right great saphenous vein to be competent throughout. The right small saphenous vein is incompetent. Plan: Because the patient has shown some improvement since her last visit, we are to transition now from the use of 1/4 inch Nu Gauze packing to a Snap VAC. The Snap VAC will apply negative pressure wound therapy, and will be changed twice weekly. The patient will return in 1 week for reassessment. Swab cultures have been obtained for aerobic and anaerobic bacterial growth. Culture results were negative. Routine laboratory studies have been obtained, and the results indicate her total protein to be low, for which the patient has been advised to increase her protein intake. The patient has been counseled to take a well-balanced and nutritious diet. Patient is to follow-up on an outpatient basis in 1 week for reassessment. The patient is not a smoker. Influenza vaccine was not administered today. The patient weighs 115 pounds. She stands 5 feet 5 inches tall. Her BMI is 19.1. She is not overweight or obese.
[2019-07-01 13:33] VITALS: BP 157/70; PULSE 74; RESP 18; TEMP 36.8; BMI 19.1
[2019-07-05 12:15] VITALS: BP 146/48; PULSE 83; RESP 16; TEMP 36.8; BMI 19.1
--- NOTE | 2019-07-05 12:56 | HP.PCM_ITS ---
(1) Wound of right leg Status: Chronic Current Visit: Yes Qualifiers: Encounter type: subsequent encounter Code(s): S81.801A - Unspecified open wound, right lower leg, initial encounter (2) Wound infection, posttraumatic Status: Chronic Current Visit: Yes Code(s): T14.8XXA - Other injury of unspecified body region, initial encounter; L08.9 - Local infection of the skin and subcutaneous tissue, unspecified (3) Hyperlipidemia Status: Chronic Current Visit: No Code(s): E78.5 - Hyperlipidemia, unspecified (4) Hypothyroidism Status: Chronic Current Visit: No Code(s): E03.9 - Hypothyroidism, unspecified (5) History of melanoma Status: Chronic Current Visit: No Code(s): Z85.820 - Personal history of malignant melanoma of skin (6) History of melanoma excision Status: Chronic Current Visit: No Code(s): Z98.890 - Other specified postprocedural states; Z85.820 - Personal history of malignant melanoma of skin History of Present Illness Date of Service: 07/05/19 Chief Complaint: Traumatic wound of the right anterior tibial surface History of Wound: This is a generally healthy and active 73-year-old female who presented with a traumatic wound on the right anterior tibial surface. The injury occurred on May 10, 2019. It occurred due to trauma when the patient dropped a box against her leg. An open wound resulted, for which she sought medical attention on May 18, 2019 at an urgent care facility. Two oral antibiotics were prescribed, both Keflex and Bactrim double strength, which she took for a total of 10 days. She has remained under the care of her primary care physician in [place], [place], and has been using antibiotic ointment topically for the last week. Despite all measures, the wound has failed to heal. She presented to our facility for evaluation and management. The patient claims to be active. She has no history of thrombophlebitis. She does not gen erally experience swelling in her lower extremities. Past Medical History Past Medical History: Chronic Problems Wound of right leg (Chronic) Wound infection, posttraumatic (Chronic) Hyperlipidemia (Chronic) Hypothyroidism (Chronic) History of melanoma (Chronic) History of melanoma excision (Chronic) Surgical History: - - The patient underwent right total hip replacement in 2016. She underwent right rotator cuff surgery in 2016. Hysterectomy was performed in 1986. Patient underwent excision of a melanoma from her right thorax in the past. She is a G4, P3 Ab1 (spontaneous). Home Medications: Ambulatory Orders Medication Instructions Recorded Aspirin [Aspir 81] 81 mg PO DAILY 06/06/19 Bimatoprost 0.01% [Lumigan 0.01%] 1 drp EACH EYE DAILY 06/06/19 Calcium Carbonate/Vitamin D3 1 ea PO BID 06/06/19 [Calcium 600 + Vit D Tablet] Fish Oil/Dha/Epa [Fish Oil 1,200 1 ea PO DAILY 06/06/19 mg Fish Oil] Levothyroxine [Synthroid] 100 mcg PO DAILY 06/06/19 Multivitamin/Iron/Folic Acid 1 ea PO DAILY 06/06/19 [Centrum Adults Tablet] - Family History Paternal - - The patient's father at the age of 65 with a history of myocardial infarction. The patient's mother is living, age 95, with severe peripheral arterial occlusive disease which has required lower extremity amputation. Smoking Status: Former smoker Tobacco Use: Non-smoker Review of Systems Constitutional: Denies: Chills, Fever, Weight Change Eyes: Denies: Pain, Vision Change HEENT: Denies: Difficulty Hearing, Difficulty Swallowing, Sinus Congestion Cardiovascular: Denies: Chest Pain, Palpitations Respiratory: Denies: Cough, Shortness of Breath Gastrointestinal: Denies: Diarrhea, Nausea, Vomiting Genitourinary: Denies: Dysuria, Hematuria Endocrine: Denies: Heat/ Cold Intolerance, Polydipsia, Polyuria Hematologic/ Lymphatic: Denies: Easy Bruising, Easy Bleeding - Physical Exam Vital Signs Temp Pulse Resp BP 98.3 F 83 16 146/48 H 07/05/19 12:15 07/05/19 12:15 07/05/19 12:15 07/05/19 12:15 General: Alert, Oriented x3, Cooperative, No apparent distress, Well developed, Well nourished HEENT: Atraumatic, PERRLA, EOMI, Normocephalic Oral: Moist Mucosa Neck: No JVD Lungs: Normal air movement Abdomen: Non-Distended Extremities: No clubbing, No cyanosis, No edema, No Calf Tenderness, - - Traumatic wound on the patient's right anterior tibial surface is smaller in size. Dimensions are documented elsewhere. There is no sign of infection or cellulitis. There is a small amount of bioburden. Skin: No rashes Wound Measurements and Assessment WC - Nurse 1 - General Ulcer Measurement Start: 06/28/19 11:58 Freq: Status: Active Protocol: Activity Type Activity Date Activity User E-Sign Co-Sign Detail Recorded Client Recorded Date Recorded By Document 07/05/19 12:15 [facility] [id number] 07/05/19 12:21 [facility] 07/05/19 12:15 Wound Center Nurse 1 [Ulcer Assessment] #1 Right Presley -Combined with other wound No -Current Size (cm) - Length 0.6 -Current Size (cm) - Width 0.5 -Current Size (cm) - Depth 0.4 -Total Square Cm 0.30 -Photo Taken No -Epithelialization Small 1-33% -Tunneling No -Undermining/Tunneling No -Circular Undermining No -Exudate Amt Small -Exudate Type Serosanguineous -Wound Margin Distinct, Outline Attached -Granulation Amt Medium (34-66%) -Granulation Quality [place] -Slough/Fibrin Yes -Necrosis Amt Medium (34-66%) -Necrotic Tissue Type Adherent Slough -Texture (Sharon-wound Skin Appearance) Assessed, Scarring -Moisture (Sharon-wound Skin Appearance Assessed, ) Maceration -Color (Sharon-wound Skin Appearance) Assessed,Palor -Temperature (Sharon-wound Skin No Abnormality Appearance) (Pt Warm) -Tenderness on Palpation (Sharon-wound No Skin Appearance) -Ulcer Cleansing soapy water -Foul Odor after Cleansing No -Anesthetic Used 5% Lidocaine Gel - Nurse 2 - General Ulcer CM Notes Start: 06/28/19 11:58 Freq: Status: Active Protocol: Activity Type Activity Date Activity User E-Sign Co-Sign Detail Recorded Client Recorded Date Recorded By Document 07/05/19 12:31 DV [id number] 07/05/19 12:41 DV 07/05/19 12:31 Wound Center Nurse 2 [Procedure/Treatment] -Time 12:31 -Correct Patient Yes -Correct Side, Site, Position Yes -Correct Procedure Yes -Procedure Performed Yes -Type of Procedure Debridement -Clinical Debridement Subcutaneous -Post Debridement Size (cm) - Length 0.7 -Post Debridement Size (cm) - Width 0.6 -Post Debridement Size (cm) - Depth 0.3 -Total Square Cm 0.42 -Wound/Ulcer Outcome Not Healed -Ulcer Cleansing Rinsed/ Irrigated with Saline -Foul Odor after Cleansing No -Bioengineered Tissue No -Bleeding Controlled with Pressure -Offloading No -Treatment Response Procedure Tolerated Well [See Physician Procedure note for Specifics] Pain Scale: 0-10 Numeric [Pain] -Is Patient Pain Free? Yes Musculoskeletal: No Muscle Wasting Neurological: Cranial nerves II-XII grossly intact, Neuro grossly intact Psych/Mental Status: Normal Affect, Appropriate, Alert and oriented to time, place, person, mood and affect Debridement Note Post-Debridement Measurements/Treatment WC - Nurse 2 - General Ulcer CM Notes Start: 06/28/19 11:58 Freq: Status: Active Protocol: Activity Type Activity Date Activity User E-Sign Co-Sign Detail Recorded Client Recorded Date Recorded By Document 06/28/19 12:21 HARJIT [id number] 06/28/19 12:24 Document 07/05/19 12:31 CASIMIRO [id number] 07/05/19 12:41 DV 06/28/19 07/05/19 12:21 12:31 Wound Center Nurse 2 #1 Right Presley -Time 12:21 12:31 -Correct Patient Yes Yes -Correct Side, Site, Position Yes Yes -Correct Procedure Yes Yes -Procedure Performed Yes Yes -Type of Procedure Debridement Debridement -Clinical Debridement Subcutaneous Subcutaneous -Post Debridement Size (cm) - Length 1.1 0.7 -Post Debridement Size (cm) - Width 0.6 0.6 -Post Debridement Size (cm) - Depth 0.6 0.3 -Total Square Cm 0.66 0.42 -Wound/Ulcer Outcome Not Healed Not Healed -Ulcer Cleansing Rinsed/ Rinsed/ Irrigated with Irrigated with Saline Saline -Foul Odor after Cleansing No No -Bioengineered Tissue No No -Bleeding Controlled with Pressure Pressure -Offloading No No -Treatment Response Procedure Procedure Tolerated Well Tolerated Well Pain Scale: 0-10 Numeric Is Patient Pain Free? Yes Yes Laterality: Right - Anterior tibial surface Type of Debridement: Excisional debridement Anesthesia Used: 5% Lidocaine Gel Depth: Down to and including healthy tissue, in the subcutaneous layer Percentage of wound debrided: 100 Instrument Used: 5mm curette Tissue Removed: Bioburden and nonviable tissue Severity: Fat Layer Exposed Amount of bleeding with debridement: Mild Bleeding Controlled with: Compression and gauze Patient tolerated procedure well Assessment/Plan Active Problems Wound of right leg (Chronic) Wound infection, posttraumatic (Chronic) Assessment: This is a 73-year-old female who appears to be generally healthy, active, and functional. She presented with a traumatic wound on the right anterior tibial surface, the result of trauma on May 10, 2019. The wound has failed to heal. At her initial presentation, there was mild erythema, suggesting possible cellulitis. Swab cultures were obtained for both aerobic and anaerobic growth, which were negative. The patient has also undergone diagnostic laboratory studies, the results of which are as follows: White blood count 5.5, hemoglobin 12.8, hematocrit 38.8, platelets 258,000, glucose 132, sodium 140, potassium 3.6, chloride 105, BUN 13, creatinine 0.83, calcium 8.9, albumin 4.1, alkaline phosphatase 67, total protein 6.3, AST 20, ALT 19, total bilirubin 0.5, sedimentation rate 11. A noninvasive lower extremity arterial study has been performed, which reveals no evidence of significant arterial occlusive disease in the lower extremities. Resting ankle-brachial indices are bilaterally normal. Triphasic Doppler waveforms are noted bilaterally at ankle level. A venous duplex examination reveals the right great saphenous vein to be competent throughout. The right small saphenous vein is incompetent. Since the recent implementation of negative pressure wound therapy, the patient has shown improvement. Plan: We are to continue with a Snap VAC. The Snap VAC will apply negative pressure wound therapy, and will be changed twice weekly. The patient will return in 1 week for reassessment. Swab cultures have been obtained for aerobic and anaerobic bacterial growth. Culture results were negative. Routine laboratory studies have been obtained, and the results indicate her total protein to be low, for which the patient has been advised to increase her protein intake. The patient has been counseled to take a well-balanced and nutritious diet. Patient is to follow-up on an outpatient basis in 1 week for r eassessment. The patient is not a smoker. Influenza vaccine was not administered today. The patient weighs 115 pounds. She stands 5 feet 5 inches tall. Her BMI is 19.1. She is not overweight or obese.
[2019-07-12 10:52] VITALS: BP 144/57; PULSE 68; RESP 16; TEMP 36.2; BMI 19.1
--- NOTE | 2019-07-12 11:34 | PCM.WC.HP ---
(1) Wound of right leg Status: Chronic Current Visit: Yes Qualifiers: Encounter type: subsequent encounter Code(s): S81.801A - Unspecified open wound, right lower leg, initial encounter (2) Wound infection, posttraumatic Status: Chronic Current Visit: Yes Code(s): T14.8XXA - Other injury of unspecified body region, initial encounter; L08.9 - Local infection of the skin and subcutaneous tissue, unspecified (3) Hyperlipidemia Status: Chronic Current Visit: No Code(s): E78.5 - Hyperlipidemia, unspecified (4) Hypothyroidism Status: Chronic Current Visit: No Code(s): E03.9 - Hypothyroidism, unspecified (5) History of melanoma Status: Chronic Current Visit: No Code(s): Z85.820 - Personal history of malignant melanoma of skin (6) History of melanoma excision Status: Chronic Current Visit: No Code(s): Z98.890 - Other specified postprocedural states; Z85.820 - Personal history of malignant melanoma of skin History of Present Illness Date of Service: 07/12/19 Chief Complaint: Traumatic wound of the right anterior tibial surface History of Wound: This is a generally healthy and active 74-year-old female who presented with a traumatic wound on the right anterior tibial surface. The injury occurred on May 10, 2019. It occurred due to trauma when the patient dropped a box against her leg. An open wound resulted, for which she sought medical attention on May 18, 2019 at an urgent care facility. Two oral antibiotics were prescribed, both Keflex and Bactrim double strength, which she took for a total of 10 days. She has remained under the care of her primary care physician in [place], [place], and has been using antibiotic ointment topically for the last week. Despite all measures, the wound has failed to heal. She presented to our facility for evaluation and management. The patient claims to be active. She has no history of thrombophlebitis. She does not generally experience swelling in her lower extremities. Past Medical History Past Medical History: Chronic Problems Wound of right leg (Chronic) Wound infection, posttraumatic (Chronic) Hyperlipidemia (Chronic) Hypothyroidism (Chronic) History of melanoma (Chronic) History of melanoma excision (Chronic) Surgical History: - - The patient underwent right total hip replacement in 2017. She underwent right rotator cuff surgery in 2016. Hysterectomy was performed in 1986. Patient underwent excision of a melanoma from her right thorax in the past. She is a G4, P3 Ab1 (spontaneous). Home Medications: Ambulatory Orders Medication Instructions Recorded Aspirin [Aspir 81] 81 mg PO DAILY 06/06/19 Bimatoprost 0.01% [Lumigan 0.01%] 1 drp EACH EYE DAILY 06/06/19 Calcium Carbonate/Vitamin D3 1 ea PO BID 06/06/19 [Calcium 600 + Vit D Tablet] Fish Oil/Dha/Epa [Fish Oil 1,200 1 ea PO DAILY 06/06/19 mg Fish Oil] Levothyroxine [Synthroid] 100 mcg PO DAILY 06/06/19 Multivitamin/Iron/Folic Acid 1 ea PO DAILY 06/06/19 [Centrum Adults Tablet] - Family History Paternal - - The patient's father at the age of 65 with a history of myocardial infarction. The patient's mother is living, age 95, with severe peripheral arterial occlusive disease which has required lower extremity amputation. Smoking Status: Former smoker Tobacco Use: Non-smoker Review of Systems Constitutional: Denies: Chills, Fever, Weight Change Eyes: Denies: Pain, Vision Change HEENT: Denies: Difficulty Hearing, Difficulty Swallowing, Sinus Congestion Cardiovascular: Denies: Chest Pain, Palpitations Respiratory: Denies: Cough, Shortness of Breath Gastrointestinal: Denies: Diarrhea, Nausea, Vomiting Genitourinary: Denies: Dysuria, Hematuria Endocrine: Denies: Heat/ Cold Intolerance, Polydipsia, Polyuria Hematologic/ Lymphatic: Denies: Easy Bruising, Easy Bleeding - Physical Exam Vital Signs Temp Pulse Resp BP 97.2 F L 68 16 144/57 H 07/12/19 10:52 07/12/19 10:52 07/12/19 10:52 07/12/19 10:52 General: Alert, Oriented x3, Cooperative, No apparent distress, Well developed, Well nourished HEENT: Atraumatic, PERRLA, EOMI, Normocephalic Oral: Moist Mucosa Neck: No JVD Lungs: Normal air movement Abdomen: Non-Distended Extremities: No clubbing, No cyanosis, No edema, No Calf Tenderness, - - Wound on the right anterior tibial surface is much improved. It is smaller in size, both in width and in depth. Dimensions are documented elsewhere. There is no sign of infection or cellulitis. There is a small amount of bioburden. Skin: No rashes Wound Measurements and Assessment - Nurse 1 - General Ulcer Measurement Start: 06/28/19 11:58 Freq: Status: Active Protocol: Activity Type Activity Date Activity User E-Sign Co-Sign Detail Recorded Client Recorded Date Recorded By Document 07/12/19 10:52 [facility] [id number] 07/12/19 10:55 [facility] 07/12/19 10:52 Wound Center Nurse 1 [Ulcer Assessment] #1 Right Presley -Combined with other wound No -Current Size (cm) - Length 0.5 -Current Size (cm) - Width 0.4 -Current Size (cm) - Depth 0.2 -Total Square Cm 0.20 -Photo Taken No -Epithelialization Small 1-33% -Tunneling No -Undermining/Tunneling No -Circular Undermining No -Exudate Amt Small -Exudate Type Serosanguineous -Wound Margin Distinct, Outline Attached -Granulation Amt Large (67-100%) -Granulation Quality Red -Slough/Fibrin Yes -Necrosis Amt Small (1-33%) -Necrotic Tissue Type Adherent Slough -Texture (Sharon-wound Skin Appearance) Assessed, Scarring -Moisture (Sharon-wound Skin Appearance Assessed,Dry/ ) Scaly -Color (Sharon-wound Skin Appearance) Assessed -Temperature (Sharon-wound Skin No Abnormality Appearance) (Pt Warm) -Tenderness on Palpation (Sharon-wound Yes Skin Appearance) -Ulcer Cleansing Rinsed/ Irrigated with Saline -Foul Odor after Cleansing No -Anesthetic Used 5% Lidocaine Gel - Nurse 2 - General Ulcer CM Notes Start: 06/28/19 11:58 Freq: Status: Active Protocol: Activity Type Activity Date Activity User E-Sign Co-Sign Detail Recorded Client Recorded Date Recorded By Document 07/12/19 11:30 DV [id number] 07/12/19 11:31 DV 07/12/19 11:30 Wound Center Nurse 2 [Procedure/Treatment] -Time 11:30 -Correct Patient Yes -Correct Side, Site, Position Yes -Correct Procedure Yes -Procedure Performed Yes -Type of Procedure Debridement -Clinical Debridement Subcutaneous -Post Debridement Size (cm) - Length 0.6 -Post Debridement Size (cm) - Width 0.5 -Post Debridement Size (cm) - Depth 0.2 -Total Square Cm 0.30 -Wound/Ulcer Outcome Not Healed -Ulcer Cleansing Rinsed/ Irrigated with Saline -Foul Odor after Cleansing No -Bioengineered Tissue No -Bleeding Controlled with Pressure -Offloading No -Treatment Response Procedure Tolerated Well [See Physician Procedure note for Specifics] Pain Scale: 0-10 Numeric [Pain] -Is Patient Pain Free? Yes Musculoskeletal: No Muscle Wasting Neurological: Cranial nerves II-XII grossly intact, Neuro grossly intact Psych/Mental Status: Normal Affect, Appropriate, Alert and oriented to time, place, person, mood and affect Debridement Note Post-Debridement Measurements/Treatment WC - Nurse 2 - General Ulcer CM Notes Start: 06/28/19 11:58 Freq: Status: Active Protocol: Activity Type Activity Date Activity User E-Sign Co-Sign Detail Recorded Client Recorded Date Recorded By Document 06/28/19 12:21 [id number] 06/28/19 12:24 Document 07/05/19 12:31 DV [id number] 07/05/19 12:41 DV Document 07/12/19 11:30 DV [id number] 07/12/19 11:31 DV 06/28/19 07/05/19 07/12/19 12:21 12:31 11:30 Wound Center Nurse 2 #1 Right Presley -Time 12:21 12:31 11:30 -Correct Patient Yes Yes Yes -Correct Side, Site, Position Yes Yes Yes -Correct Procedure Yes Yes Yes -Procedure Performed Yes Yes Yes -Type of Procedure Debridement Debridement Debridement -Clinical Debridement Subcutaneous Subcutaneous Subcutaneous -Post Debridement Size (cm) - Length 1.1 0.7 0.6 -Post Debridement Size (cm) - Width 0.6 0.6 0.5 -Post Debridement Size (cm) - Depth 0.6 0.3 0.2 -Total Square Cm 0.66 0.42 0.30 -Wound/Ulcer Outcome Not Healed Not Healed Not Healed -Ulcer Cleansing Rinsed/ Rinsed/ Rinsed/ Irrigated with Irrigated with Irrigated with Saline Saline Saline -Foul Odor after Cleansing No No No -Bioengineered Tissue No No No -Bleeding Controlled with Pressure Pressure Pressure -Offloading No No No -Treatment Response Procedure Procedure Procedure Tolerated Well Tolerated Well Tolerated Well Pain Scale: 0-10 Numeric Is Patient Pain Free? Yes Yes Yes Laterality: Right - Anterior tibial surface Type of Debridement: Excisional debridement Anesthesia Used: 5% Lidocaine Gel Depth: Down to and including healthy tissue, in the subcutaneous layer Percentage of wound debrided: 100 Instrument Used: 3mm curette Tissue Removed: Bioburden and nonviable tissue Severity: Fat Layer Exposed Amount of bleeding with debridement: Mild Bleeding Controlled with: Compression and gauze Patient tolerated procedure well Assessment/Plan Active Problems Wound of right leg (Chronic) Wound infection, posttraumatic (Chronic) Assessment: This is a 74 year-old female who appears to be generally healthy, active, and functional. She presented with a traumatic wound on the right anterior tibial surface, the result of trauma on May 10, 2019. The wound has failed to heal. At her initial presentation, there was mild erythema, suggesting possible cellulitis. Swab cultures were obtained for both aerobic and anaerobic growth, which were negative. The patient has also undergone diagnostic laboratory studies, the results of which are as follows: White blood count 5.5, hemoglobin 12.8, hematocrit 38.8, platelets 258,000, glucose 132, sodium 140, potassium 3.6, chloride 105, BUN 13, creatinine 0.83, calcium 8.9, albumin 4.1, alkaline phosphatase 67, total protein 6.3, AST 20, ALT 19, total bilirubin 0.5, sedimentation rate 11. A noninvasive lower extremity arterial study has been performed, which reveals no evidence of significant arterial occlusive disease in the lower extremities. Resting ankle-brachial indices are bilaterally normal. Triphasic Doppler waveforms are noted bilaterally at ankle level. A venous duplex examination reveals the right great saphenous vein to be competent throughout. The right small saphenous vein is incompetent. Since the recent implementation of negative pressure wound therapy, the patient has shown improvement. Plan: We are to continue with a Snap VAC. The Snap VAC will apply negative pressure wound therapy, and will be changed twice weekly. The patient will return in 1 week for reassessment. Swab cultures have been obtained for aerobic and anaerobic bacterial growth. Culture results were negative. Routine laboratory studies have been obtained, and the results indicate her total protein to be low, for which the patient has been advised to increase her protein intake. The patient has been counseled to take a well-balanced and nutritious diet. Patient is to follow-up on an outpatient basis in 1 week for reassessment. The patient is not a smoker. Influenza vaccine was not administered today. The patient weighs 115 pounds. She stands 5 feet 5 inches tall. Her BMI is 19.1. She is not overweight or obese.
[2019-07-19 11:47] VITALS: BP 139/78; PULSE 79; RESP 16; TEMP 36.2; BMI 19.1
--- NOTE | 2019-07-19 12:46 | HP.PCM_ITS ---
(1) Wound of right leg Status: Chronic Current Visit: Yes Qualifiers: Encounter type: subsequent encounter Code(s): S81.801A - Unspecified open wound, right lower leg, initial encounter (2) Wound infection, posttraumatic Status: Chronic Current Visit: Yes Code(s): T14.8XXA - Other injury of unspecified body region, initial encounter; L08.9 - Local infection of the skin and subcutaneous tissue, unspecified (3) Hyperlipidemia Status: Chronic Current Visit: No Code(s): E78.5 - Hyperlipidemia, unspecified (4) Hypothyroidism Status: Chronic Current Visit: No Code(s): E03.9 - Hypothyroidism, unspecified (5) History of melanoma Status: Chronic Current Visit: No Code(s): Z85.820 - Personal history of malignant melanoma of skin (6) History of melanoma excision Status: Chronic Current Visit: No Code(s): Z98.890 - Other specified postprocedural states; Z85.820 - Personal history of malignant melanoma of skin History of Present Illness Date of Service: 07/19/19 Chief Complaint: Traumatic wound of the right anterior tibial surface History of Wound: This is a generally healthy and active 74-year-old female who presented with a traumatic wound on the right anterior tibial surface. The injury occurred on May 10, 2019. It occurred due to trauma when the patient dropped a box against her leg. An open wound resulted, for which she sought medical attention on May 18, 2019 at an urgent care facility. Two oral antibiotics were prescribed, both Keflex and Bactrim double strength, which she took for a total of 10 days. She has remained under the care of her primary care physician in [place], [place], and has been using antibiotic ointment topically for the last week. Despite all measures, the wound has failed to heal. She presented to our facility for evaluation and management. The patient claims to be active. She has no history of thrombophlebitis. She does not gen erally experience swelling in her lower extremities. Past Medical History Past Medical History: Chronic Problems Wound of right leg (Chronic) Wound infection, posttraumatic (Chronic) Hyperlipidemia (Chronic) Hypothyroidism (Chronic) History of melanoma (Chronic) History of melanoma excision (Chronic) Surgical History: - - The patient underwent right total hip replacement in 2016. She underwent right rotator cuff surgery in 2016. Hysterectomy was performed in 1986. Patient underwent excision of a melanoma from her right thorax in the past. She is a G4, P3 Ab1 (spontaneous). Home Medications: Ambulatory Orders Medication Instructions Recorded Aspirin [Aspir 81] 81 mg PO DAILY 06/06/19 Bimatoprost 0.01% [Lumigan 0.01%] 1 drp EACH EYE DAILY 06/06/19 Calcium Carbonate/Vitamin D3 1 ea PO BID 06/06/19 [Calcium 600 + Vit D Tablet] Fish Oil/Dha/Epa [Fish Oil 1,200 1 ea PO DAILY 06/06/19 mg Fish Oil] Levothyroxine [Synthroid] 100 mcg PO DAILY 06/06/19 Multivitamin/Iron/Folic Acid 1 ea PO DAILY 06/06/19 [Centrum Adults Tablet] - Family History Paternal - - The patient's father at the age of 65 with a history of myocardial infarction. The patient's mother is living, age 95, with severe peripheral arterial occlusive disease which has required lower extremity amputation. Smoking Status: Former smoker Tobacco Use: Non-smoker Review of Systems Constitutional: Denies: Chills, Fever, Weight Change Eyes: Denies: Pain, Vision Change HEENT: Denies: Difficulty Hearing, Difficulty Swallowing, Sinus Congestion Cardiovascular: Denies: Chest Pain, Palpitations Respiratory: Denies: Cough, Shortness of Breath Gastrointestinal: Denies: Diarrhea, Nausea, Vomiting Genitourinary: Denies: Dysuria, Hematuria Endocrine: Denies: Heat/ Cold Intolerance, Polydipsia, Polyuria Hematologic/ Lymphatic: Denies: Easy Bruising, Easy Bleeding - Physical Exam Vital Signs Temp Pulse Resp BP 97.2 F L 79 16 139/78 H 07/19/19 11:47 07/19/19 11:47 07/19/19 11:47 07/19/19 11:47 General: Alert, Oriented x3, Cooperative, No apparent distress, Well developed, Well nourished HEENT: Atraumatic, PERRLA, EOMI, Normocephalic Oral: Moist Mucosa Neck: No JVD Lungs: Normal air movement Abdomen: Non-Distended Extremities: No clubbing, No cyanosis, No edema, No Calf Tenderness, - - The wound persists on the right anterior tibial surface. It is small in size. Dimensions are documented elsewhere. There is no sign of infection or cellulitis. There is a small amount of bioburden. Skin: No rashes Wound Measurements and Assessment WC - Nurse 1 - General Ulcer Measurement Start: 06/28/19 11:58 Freq: Status: Active Protocol: Activity Type Activity Date Activity User E-Sign Co-Sign Detail Recorded Client Recorded Date Recorded By Document 07/19/19 11:47 DL [id number] 07/19/19 11:51 DL 07/19/19 11:47 Wound Center Nurse 1 [Ulcer Assessment] #1 Right Presley -Combined with other wound No -Current Size (cm) - Length 0.2 -Current Size (cm) - Width 0.2 -Current Size (cm) - Depth 0.1 -Total Square Cm 0.04 -Photo Taken No -Epithelialization None Present -Tunneling No -Undermining/Tunneling No -Circular Undermining No -Exudate Amt Small -Exudate Type Serous -Wound Margin Distinct, Outline Attached -Granulation Amt None Present (0 %) -Slough/Fibrin Yes -Necrosis Amt Large (67-100%) -Necrotic Tissue Type Adherent Slough -Texture (Sharon-wound Skin Appearance) Assessed, Scarring -Moisture (Sharon-wound Skin Appearance Assessed,Dry/ ) Scaly -Color (Sharon-wound Skin Appearance) Assessed -Temperature (Sharon-wound Skin No Abnormality Appearance) (Pt Warm) -Tenderness on Palpation (Sharon-wound No Skin Appearance) -Ulcer Cleansing Rinsed/ Irrigated with Saline -Foul Odor after Cleansing No -Anesthetic Used 5% Lidocaine Gel WC - Nurse 2 - General Ulcer CM Notes Start: 06/28/19 11:58 Freq: Status: Active Protocol: Activity Type Activity Date Activity User E-Sign Co-Sign Detail Recorded Client Recorded Date Recorded By Document 07/19/19 12:14 DV [id number] 07/19/19 12:16 DV 07/19/19 12:14 Wound Center Nurse 2 [Procedure/Treatment] -Time 12:14 -Correct Patient Yes -Correct Side, Site, Position Yes -Correct Procedure Yes -Procedure Performed Yes -Type of Procedure Debridement -Clinical Debridement Subcutaneous -Post Debridement Size (cm) - Length 0.4 -Post Debridement Size (cm) - Width 0.5 -Post Debridement Size (cm) - Depth 0.2 -Total Square Cm 0.20 -Wound/Ulcer Outcome Not Healed -Ulcer Cleansing Rinsed/ Irrigated with Saline -Foul Odor after Cleansing No -Bioengineered Tissue No -Bleeding Controlled with Pressure -Offloading No -Treatment Response Procedure Tolerated Well [See Physician Procedure note for Specifics] Pain Scale: 0-10 Numeric [Pain] -Is Patient Pain Free? Yes Musculoskeletal: No Muscle Wasting Neurological: Cranial nerves II-XII grossly intact, Neuro grossly intact Psych/Mental Status: Normal Affect, Appropriate, Alert and oriented to time, place, person, mood and affect Debridement Note Post-Debridement Measurements/Treatment WC - Nurse 2 - General Ulcer CM Notes Start: 06/28/19 11:58 Freq: Status: Active Protocol: Activity Type Activity Date Activity User E-Sign Co-Sign Detail Recorded Client Recorded Date Recorded By Document 06/28/19 12:21 [id number] 06/28/19 12:24 JF Document 07/05/19 12:31 DV [id number] 07/05/19 12:41 DV Document 07/12/19 11:30 DV [id number] 07/12/19 11:31 DV Document 07/19/19 12:14 DV [id number] 07/19/19 12:16 DV 06/28/19 07/05/19 07/12/19 12:21 12:31 11:30 Wound Center Nurse 2 #1 Right Presley -Time 12:21 12:31 11:30 -Correct Patient Yes Yes Yes -Correct Side, Site, Position Yes Yes Yes -Correct Procedure Yes Yes Yes -Procedure Performed Yes Yes Yes -Type of Procedure Debridement Debridement Debridement -Clinical Debridement Subcutaneous Subcutaneous Subcutaneous -Post Debridement Size (cm) - Length 1.1 0.7 0.6 -Post Debridement Size (cm) - Width 0.6 0.6 0.5 -Post Debridement Size (cm) - Depth 0.6 0.3 0.2 -Total Square Cm 0.66 0.42 0.30 -Wound/Ulcer Outcome Not Healed Not Healed Not Healed -Ulcer Cleansing Rinsed/ Rinsed/ Rinsed/ Irrigated with Irrigated with Irrigated with Saline Saline Saline -Foul Odor after Cleansing No No No -Bioengineered Tissue No No No -Bleeding Controlled with Pressure Pressure Pressure -Offloading No No No -Treatment Response Procedure Procedure Procedure Tolerated Well Tolerated Well Tolerated Well Pain Scale: 0-10 Numeric Is Patient Pain Free? Yes Yes Yes 07/19/19 12:14 Wound Center Nurse 2 #1 Right Presley -Time 12:14 -Correct Patient Yes -Correct Side, Site, Position Yes -Correct Procedure Yes -Procedure Performed Yes -Type of Procedure Debridement -Clinical Debridement Subcutaneous -Post Debridement Size (cm) - Length 0.4 -Post Debridement Size (cm) - Width 0.5 -Post Debridement Size (cm) - Depth 0.2 -Total Square Cm 0.20 -Wound/Ulcer Outcome Not Healed -Ulcer Cleansing Rinsed/ Irrigated with Saline -Foul Odor after Cleansing No -Bioengineered Tissue No -Bleeding Controlled with Pressure -Offloading No -Treatment Response Procedure Tolerated Well Pain Scale: 0-10 Numeric Is Patient Pain Free? Yes Laterality: Right - Anterior tibial surface Type of Debridement: Excisional debridement Anesthesia Used: 5% Lidocaine Gel Depth: Down to and including healthy tissue, in the subcutaneous layer Percentage of wound debrided: 100 Instrument Used: 3mm curette Tissue Removed: Bioburden Severity: Fat Layer Exposed Amount of bleeding with debridement: Mild Bleeding Controlled with: Compression and gauze Patient tolerated procedure well Assessment/Plan Active Problems Wound of right leg (Chronic) Wound infection, posttraumatic (Chronic) Assessment: This is a 74 year-old female who appears to be generally healthy, active, and functional. She presented with a traumatic wound on the right anterior tibial surface, the result of trauma on May 10, 2019. The wound had failed to heal. Swab cultures were obtained for both aerobic and anaerobic growth, which were negative. The patient has also undergone diagnostic laboratory studies, the results of which are as follows: White blood count 5.5, hemoglobin 12.8, hematocrit 38.8, platelets 258,000, glucose 132, sodium 140, potassium 3.6, chloride 105, BUN 13, creatinine 0.83, calcium 8.9, albumin 4.1, alkaline phosphatase 67, total protein 6.3, AST 20, ALT 19, total bilirubin 0.5, sedimentation rate 11. A noninvasive lower extremity arterial study has been performed, which reveals no evidence of significant arterial occlusive disease in the lower extremities. Resting ankle-brachial indices are bilaterally normal. Triphasic Doppler waveforms are noted bilaterally at ankle level. A venous duplex examination reveals the right great saphenous vein to be competent throughout. The right small saphenous vein is incompetent. Plan: We are to transition from the Snap VAC to the use of Raissa topically. Raissa will be gently moistened prior to application. It will be applied on a daily basis. The patient will return in 1 week for reassessment. Swab cultures have been obtained for aerobic and anaerobic bacterial growth. Culture results were negative. Routine laboratory studies have been obtained, and the results indicate her total protein to be low, for which the patient has been advised to increase her protein intake. The patient has been counseled to take a well-balanced and nutritious diet. Patient is to follow-up on an outpatient basis in 1 week for reassessment. The patient is not a smoker. Influenza vaccine was not administered today. The patient weighs 115 pounds. She stands 5 feet 5 inches tall. Her BMI is 19.1. She is not overweight or obese.
== END 2019-07-22 23:59 ==
LOC: WC 12:00
PROVIDERS: Family Provider Nurse Practitioner Family; PCP Nurse Practitioner Family; Visit Provider Surgery
DX: S81.831A Puncture wound without foreign body, right lower leg, initial encounter (principal); W22.8XXA Striking against or struck by other objects, initial encounter; E78.5 Hyperlipidemia, unspecified; Z86.19 Personal history of other infectious and parasitic diseases; E03.9 Hypothyroidism, unspecified; Z85.820 Personal history of malignant melanoma of skin; I73.9 Peripheral vascular disease, unspecified; M79.89 Other specified soft tissue disorders; R52 Pain, unspecified; Z79.899 Other long term (current) drug therapy; Z79.82 Long term (current) use of aspirin; Z87.891 Personal history of nicotine dependence
CPT/HCPCS: 11042; 93923; 93970; 97605; 97607

== ENCOUNTER 2019-08-02 12:00 | Outpatient (RCR) | payer MEDICARE, SELFPAY ==
[2019-07-23 00:57] VITALS: BP 139/78; PULSE 79; RESP 16; TEMP 36.2
[2019-08-02 11:54] VITALS: BP 154/64; PULSE 68; RESP 16; TEMP 35.8; BMI 19.1
--- NOTE | 2019-08-02 12:27 | HP.PCM_ITS ---
(1) Wound of right leg Status: Chronic Current Visit: Yes Qualifiers: Encounter type: subsequent encounter Code(s): S81.801A - Unspecified open wound, right lower leg, initial encounter (2) Wound infection, posttraumatic Status: Resolved Current Visit: No Code(s): T14.8XXA - Other injury of unspecified body region, initial encounter; L08.9 - Local infection of the skin and subcutaneous tissue, unspecified (3) Hyperlipidemia Status: Chronic Current Visit: No Code(s): E78.5 - Hyperlipidemia, unspecified (4) Hypothyroidism Status: Chronic Current Visit: No Code(s): E03.9 - Hypothyroidism, unspecified (5) History of melanoma Status: Chronic Current Visit: No Code(s): Z85.820 - Personal history of malignant melanoma of skin (6) History of melanoma excision Status: Chronic Current Visit: No Code(s): Z98.890 - Other specified postprocedural states; Z85.820 - Personal history of malignant melanoma of skin History of Present Illness Date of Service: 08/02/19 Chief Complaint: Traumatic wound of the right anterior tibial surface History of Wound: This is a generally healthy and active 74-year-old female who presented with a traumatic wound on the right anterior tibial surface. The injury occurred on May 10, 2019. It occurred due to trauma when the patient dropped a box against her leg. An open wound resulted, for which she sought medical attention on May 18, 2019 at an urgent care facility. Two oral antibiotics were prescribed, both Keflex and Bactrim double strength, which she took for a total of 10 days. She has remained under the care of her primary care physician in [place], [place], and has been using antibiotic ointment topically for the last week. Despite all measures, the wound has failed to heal. She presented to our facility for evaluation and management. The patient claims to be active. She has no history of thrombophlebitis. She does not gen erally experience swelling in her lower extremities. Past Medical History Past Medical History: Chronic Problems Wound of right leg (Chronic) Hyperlipidemia (Chronic) Hypothyroidism (Chronic) History of melanoma (Chronic) History of melanoma excision (Chronic) Surgical History: - - The patient underwent right total hip replacement in 2017. She underwent right rotator cuff surgery in 2016. Hysterectomy was performed in 1986. Patient underwent excision of a melanoma from her right thorax in the past. She is a G4, P3 Ab1 (spontaneous). Home Medications: Ambulatory Orders Medication Instructions Recorded Aspirin [Aspir 81] 81 mg PO DAILY 06/06/19 Bimatoprost 0.01% [Lumigan 0.01%] 1 drp EACH EYE DAILY 06/06/19 Calcium Carbonate/Vitamin D3 1 ea PO BID 06/06/19 [Calcium 600 + Vit D Tablet] Fish Oil/Dha/Epa [Fish Oil 1,200 1 ea PO DAILY 06/06/19 mg Fish Oil] Levothyroxine [Synthroid] 100 mcg PO DAILY 06/06/19 Multivitamin/Iron/Folic Acid 1 ea PO DAILY 06/06/19 [Centrum Adults Tablet] - Family History Paternal - - The patient's father at the age of 65 with a history of myocardial infarction. The patient's mother is living, age 95, with severe peripheral arterial occlusive disease which has required lower extremity amputation. Smoking Status: Former smoker Tobacco Use: Non-smoker Review of Systems Constitutional: Denies: Chills, Fever, Weight Change Eyes: Denies: Pain, Vision Change HEENT: Denies: Difficulty Hearing, Difficulty Swallowing, Sinus Congestion Cardiovascular: Denies: Chest Pain, Palpitations Respiratory: Denies: Cough, Shortness of Breath Gastrointestinal: Denies: Diarrhea, Nausea, Vomiting Genitourinary: Denies: Dysuria, Hematuria Endocrine: Denies: Heat/ Cold Intolerance, Polydipsia, Polyuria Hematologic/ Lymphatic: Denies: Easy Bruising, Easy Bleeding - Physical Exam Vital Signs Temp Pulse Resp BP 96.4 F L 68 16 154/64 H 08/02/19 11:54 08/02/19 11:54 08/02/19 11:54 08/02/19 11:54 General: Alert, Oriented x3, Cooperative, No apparent distress, Well developed, Well nourished HEENT: Atraumatic, PERRLA, EOMI, Normocephalic Oral: Moist Mucosa Neck: No JVD Lungs: Normal air movement Abdomen: Non-Distended Extremities: No clubbing, No cyanosis, No edema, No Calf Tenderness, - - There is no swelling or edema in the patient's right lower extremity. The traumatic wound on the right anterior tibial surface is now completely healed and epithelialized. There is no sign of infection or cellulitis. Skin: No rashes, No breakdown Wound Measurements and Assessment WC - Nurse 1 - General Ulcer Measurement Start: 07/27/19 09:49 Freq: Status: Active Protocol: Activity Type Activity Date Activity User E-Sign Co-Sign Detail Recorded Client Recorded Date Recorded By Document 08/02/19 11:54 [facility] [id number] 08/02/19 11:56 [facility] 08/02/19 11:54 Wound Center Nurse 1 [Ulcer Assessment] #1 Right Presley -Combined with other wound No -Current Size (cm) - Length 0.1 -Current Size (cm) - Width 0.1 -Current Size (cm) - Depth 0.1 -Total Square Cm 0.01 -Photo Taken No -Tunneling No -Undermining/Tunneling No -Circular Undermining No -Texture (Sharon-wound Skin Appearance) Assessed -Moisture (Sharon-wound Skin Appearance Assessed ) -Color (Sharon-wound Skin Appearance) Assessed -Temperature (Sharon-wound Skin No Abnormality Appearance) (Pt Warm) -Tenderness on Palpation (Sharon-wound No Skin Appearance) -Ulcer Cleansing Rinsed/ Irrigated with Saline -Foul Odor after Cleansing No -Anesthetic Used 5% Lidocaine Gel Musculoskeletal: No Muscle Wasting Neurological: Cranial nerves II-XII grossly intact, Neuro grossly intact Psych/Mental Status: Normal Affect, Appropriate, Alert and oriented to time, place, person, mood and affect Debridement Note No debridement was completed today - The patient's right anterior tibial surface wound is completely healed and epithelialized. Assessment/Plan Active Problems Wound of right leg (Chronic) Assessment: This is a 74 year-old female who appears to be generally healthy, active, and functional. She presented with a traumatic wound on the right anterior tibial surface, the result of trauma on May 10, 2019. The wound had failed to heal. Swab cultures were obtained for both aerobic and anaerobic growth, which were negative. The patient has also undergone diagnostic laboratory studies, the results of which are as follows: White blood count 5.5, hemoglobin 12.8, hematocrit 38.8, platelets 258,000, glucose 132, sodium 140, potassium 3.6, chloride 105, BUN 13, creatinine 0.83, calcium 8.9, albumin 4.1, alkaline phosphatase 67, total protein 6.3, AST 20, ALT 19, total bilirubin 0.5, sedimentation rate 11. A noninvasive lower extremity arterial study has been pe rformed, which reveals no evidence of significant arterial occlusive disease in the lower extremities. Resting ankle-brachial indices are bilaterally normal. Triphasic Doppler waveforms are noted bilaterally at ankle level. A venous duplex examination reveals the right great saphenous vein to be competent throughout. The right small saphenous vein is incompetent. As of today's clinic visit, the right lower extremity traumatic wound is completely healed and epithelialized. Plan: The patient's right lower extremity traumatic wound is completely healed and epithelialized. She is to be discharged. She will follow-up henceforth on an as-needed basis. The patient is not a smoker. Influenza vaccine was not administered today. The patient weighs 115 pounds. She stands 5 feet 5 inches tall. Her BMI is 19.1. She is not overweight or obese.
== END 2019-08-20 23:59 ==
LOC: WC 12:00
PROVIDERS: Family Provider Nurse Practitioner Family; PCP Nurse Practitioner Family; Visit Provider Surgery
DX: Z09 Encounter for follow-up examination after completed treatment for conditions other than malignant neoplasm (principal); E03.9 Hypothyroidism, unspecified; E78.5 Hyperlipidemia, unspecified; Z79.82 Long term (current) use of aspirin; Z85.820 Personal history of malignant melanoma of skin; Z87.891 Personal history of nicotine dependence; Z98.890 Other specified postprocedural states; Z96.641 Presence of right artificial hip joint
CPT/HCPCS: 99212; G0463

== ENCOUNTER → 2024-09-06 | Outpatient (CLI) | payer SELFPAY ==
--- NOTE | 2024-09-06 10:45 | RAD_ITS ---
PROCEDURE: SHOULDER MIN 2 VIEWS 09/06/2024 REASON FOR EXAM: RIGHT SHOULDER PAIN TECHNIQUE: Four view right shoulder COMPARISON: None. RAD/Shoulder min 2 Views IMPRESSION: At least mild right acromioclavicular joint degenerative changes are seen, also with cortical irregularity on both sides of the articulation. Degenerative changes are also seen about the right humeral head greater tuberos ity, further suggestive of the presence of chronic rotator cuff disease. The right glenohumeral joint demonstrates minimal degenerative changes, without apparent joint narrowing. No acute fracture or dislocation is seen. [id number] degenerative changes of the visualized spine also noted. Reading Location: [id number]
== END | disposition home or self-care (01) ==
PROVIDERS: PCP Internal Medicine; Referring Provider Chiropractor Orthopedic; Visit Provider Chiropractor Orthopedic
DX: S43.401A Unspecified sprain of right shoulder joint, initial encounter (principal)
CPT/HCPCS: 73030